=== PATIENT | female | born 1995 | race Caucasian/White ===

== ENCOUNTER 2017-01-13 22:46 | Emergency (ER) | payer OTHER, MEDICAID ==
[~2017-01-13] VITALS: Ht 167.6 cm; Wt 68.0 kg
[~2017-01-13 22:46] MED LIST: IBUP600 PO; OXYC1SOL5 PO; PERI8.6T PO; PRENCAP6 PO
[2017-01-13 22:48] VITALS: BP 185/87; PULSE 74; RESP 18; TEMP 97.8; O2SAT 100
[2017-01-13 23:35] VITALS: BP 144/97; PULSE 80; RESP 18; O2SAT 99
[2017-01-13] MEDS ORDERED: CALCTAB23 PO (23:41)
[2017-01-13] MEDS ORDERED: TUMS500C CHEW (23:41)
[2017-01-13] MEDS ORDERED: HYDR-3516 PO (23:41)
--- NOTE | 2017-01-14 00:18 | PD ---
HPI Chief Complaint: Chest Pain Time Seen by Provider: 23:56 Travel History International Travel<30 days: No Contact w/Intl Traveler<30days: No Traveled to known affect area: No History of Present Illness HPI Patient is a 21-year-old female who presents to emergency room with complaints of chest pain. Patient reports that she had a total thyroidectomy yesterday, as she had a thyroid nodule which was growing in size. Patient reports that she has not been started on any thyroid medications at this time. Patient reports that around 9 PM tonight, she began to have sharp stabbing chest pain to her epigastrium. Patient reports that chest pain is nonradiating in nature, denies shortness of breath, diaphoresis with symptoms. She with a history of chest pain in the past, no history of VT, coronary disease, hypertension or hyperlipidemia. Patient denies any drug abuse, no family history of early VT. PFSH Past Medical History Asthma: Yes Autoimmune Disease: No Blood Disorders: No Anxiety: No Depression: No Heart Rhythm Problems: No Cardiovascular Problems: No Chest Pain: No Cystic Fibrosis: No Diminished Hearing: No Gastrointestinal Disorders: No Genitourinary: No Headaches: No Hypertension: No Musculoskeletal: No Neurologic: No Psychiatric: No Reproductive: Yes (PCOS) Respiratory: Yes Immunizations Current: Yes Seizures: No Sickle Cell Disease: No Sleep Apnea: Yes Thyroid Disease: Yes (HYPER, THYROIDECTOMY 01/12/17) ?: Not LMP: "about two weeks ago" : 2 Para: 0 Miscarriage: 1 Past Surgical History Abdominal Surgery: No Cardiac Surgery: No Ear Surgery: No Endocrine Surgery: No Eye Surgery: No Genitourinary Surgery: No Gynecologic Surgery: No Neurologic Surgery: No Oral Surgery: Yes (T/A) Thoracic Surgery: No Tonsillectomy: Yes Other Surgery: Yes (thyroidectomy 01/12/17) Social History Alcohol Use: No Tobacco Use: No Substance Use: No Allergies-Medications (Allergen,Severity, Reaction): Uncoded Allergies: MASTISOL (Allergy, Severe, BLISTERS, 02/24/16) SEVERE Reported Meds & Prescriptions Reported Meds & Active Scripts Active Reported Calcium 500 + D (Calcium Carbonate-Vitamin D) 500-125 Mg-Unit Tab 1 Tab PO BID Tums (Calcium Carbonate (Antacid)) 500 Mg Chew 500 Mg CHEW PRN Hydrocodone-Acetaminophen 5-325 mg Tab 1 Tab PO Q4H PRN Review of Systems General / Constitutional: No: Fever Eyes: No: Visual changes HENT: No: Headaches Cardiovascular: Positive: Chest Pain or Discomfort, Palpitations Respiratory: No: Shortness of Breath Gastrointestinal: No: Abdominal Pain Genitourinary: No: Dysuria Musculoskeletal: No: Pain Skin: No Rash Neurologic: No: Weakness Psychiatric: No: Depression Endocrine: No: Polydipsia Hematologic/Lymphatic: No: Easy Bruising Physical Exam Narrative GENERAL: nad, nondistended SKIN: Focused skin assessment warm/dry. HEAD: Atraumatic. Normocephalic. EYES: Pupils equal and round. No scleral icterus. No injection or drainage. ENT: No nasal bleeding or discharge. Mucous membranes pink and moist. NECK: Trachea midline. No JVD. CARDIOVASCULAR: Regular rate and rhythm. No murmur appreciated. RESPIRATORY: No accessory muscle use. Clear to auscultation. Breath sounds equal bilaterally. GASTROINTESTINAL: Abdomen soft, non-tender, nondistended. Hepatic and splenic margins not palpable. MUSCULOSKELETAL: No obvious deformities. No clubbing. No cyanosis. No edema. NEUROLOGICAL: Awake and alert. No obvious cranial nerve deficits. Motor grossly within normal limits. Normal speech. PSYCHIATRIC: Appropriate mood and affect; insight and judgment normal. Data Data Last Documented VS Vital Signs Date Time Temp Pulse Resp B/P Pulse Ox O2 Delivery O2 Flow Rate FiO2 01/13/17 23:41 86 01/13/17 23:35 18 144/97 99 Room Air 01/13/17 22:48 97.8 Orders Ckmb (Isoenzyme) Profile (01/14/17 01:59) Complete Blood Count With Diff (01/14/17 01:59) Comprehensive Metabolic Panel (01/14/17 01:59) Magnesium (Mg) (01/14/17 01:59) Prothrombin Time / Inr (Pt) (01/14/17 01:59) Act Partial Throm Time (Ptt) (01/14/17 01:59) Troponin I (01/14/17 01:59) Chest, Single Ap (01/14/17 01:59) Iv Access Insert/Monitor (01/14/17 01:59) Sodium Chloride 0.9% Flush (Ns Flush) (01/14/17 02:00) Sodium Chlorid 0.9% 500 Ml Inj (Ns 500 M (01/14/17 02:00) Ketorolac Inj (Toradol Inj) (01/14/17 02:00) Sodium Chlor 0.9% 1000 Ml Inj (Ns 1000 M (01/14/17 02:00) Thyroid Stimulating Hormone (01/14/17 01:59) CKMB (01/13/17 23:44) CKMB% (01/13/17 23:44) Labs Laboratory Tests Test 01/13/17 23:44 White Blood Count 8.7 TH/MM3 Red Blood Count 4.16 MIL/MM3 Hemoglobin 11.5 GM/DL Hematocrit 34.8 % Mean Corpuscular Volume 83.5 FL Mean Corpuscular Hemoglobin 27.6 PG Mean Corpuscular Hemoglobin 33.1 % Concent Red Cell Distribution Width 14.6 % Platelet Count 260 TH/MM3 Mean Platelet Volume 7.3 FL Neutrophils (%) (Auto) 58.8 % Lymphocytes (%) (Auto) 30.9 % Monocytes (%) (Auto) 7.9 % Eosinophils (%) (Auto) 1.0 % Basophils (%) (Auto) 1.4 % Neutrophils # (Auto) 5.1 TH/MM3 Lymphocytes # (Auto) 2.7 TH/MM3 Monocytes # (Auto) 0.7 TH/MM3 Eosinophils # (Auto) 0.1 TH/MM3 Basophils # (Auto) 0.1 TH/MM3 CBC Comment DIFF FINAL Differential Comment Prothrombin Time 10.0 SEC Prothromb Time International 0.9 RATIO Ratio Activated Partial 26.7 SEC Thromboplast Time Sodium Level 141 MEQ/L Potassium Level 3.7 MEQ/L Chloride Level 106 MEQ/L Carbon Dioxide Level 26.4 MEQ/L Anion Gap 9 MEQ/L Blood Urea Nitrogen 11 MG/DL Creatinine 0.77 MG/DL Estimat Glomerular Filtration 96 ML/MIN Rate Random Glucose 66 MG/DL Calcium Level 8.1 MG/DL Magnesium Level 1.9 MG/DL Total Bilirubin 0.3 MG/DL Aspartate Amino Transf 19 U/L (AST/SGOT) Alanine Aminotransferase 14 U/L (ALT/SGPT) Alkaline Phosphatase 45 U/L Total Creatine Kinase 502 U/L Creatine Kinase MB 1.3 NG/ML Creatine Kinase MB % 0.3 % Troponin I LESS THAN 0.02 NG/ML Total Protein 6.6 GM/DL Albumin 3.1 GM/DL Thyroid Stimulating Hormone 0.032 uIU/ML 3rd Gen [facility] Medical Decision Making Medical Screen Exam Complete: Yes Emergency Medical Condition: Yes Interpretation(s) Vital Signs Date Time Temp Pulse Resp B/P Pulse Ox O2 Delivery O2 Flow Rate FiO2 01/13/17 23:41 86 01/13/17 23:35 80 18 144/97 99 Room Air 01/13/17 22:48 97.8 74 18 185/87 100 Room Air Differential Diagnosis acs, arrythmia, hyperthyroid, pe, pneumothorax Narrative Course Patient is a 21-year-old female with complaints of chest pain. Patient reports that she had a total thyroidectomy yesterday, worse that tonight she has been having sharp stabbing pain to her chest. Patient was placed on a manager cardiac cath upon arrival to emergency room. EKG at 2338 shows normal sinus rhythm at 87 bpm, QT/QTC 363/407, no acute ST-T wave changes Labs as well as x-ray chest ordered. patient was given toradol for pain repeat EKG at 0203: NSR at 68bpm, qt/qtc: 392/408, no st or t wave changes I reviewed all labs and all studies with patient in detail. Patient feeling much better at this time. Signs and symptoms of when to return to emergency room was reviewed with patient. 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 Patient will return to emergency room as needed. Diagnosis Primary Impression: Chest pain Qualified Code: R07.9 - Chest pain, unspecified type Additional Impression: Abnormal TSH Patient Instructions: General Instructions Additional Instructions: Please provide patient with a copy of his lab work at discharge Please call your surgeon Please call your primary care doctor Return to ER as needed Disposition: 01 DISCHARGE HOME Condition: Stable Enid Cm DO Jan 14, 2017 00:18
[2017-01-14] MEDS ORDERED: SODIUM CHLORID 0.9% 500 ML INJ 500 ML IV ONE (02:00)
[2017-01-14] MEDS ORDERED: KETOROLAC TROMETHAMINE 30 MG/ML (IVP) VIAL IV PUSH ONE (02:00)
[2017-01-14] MEDS ORDERED: SODIUM CHLOR 0.9% 1000 ML INJ 1,000 ML IV ONE (02:00)
[2017-01-14] MEDS ORDERED: SODIUM CHLORIDE 0.9% FLUSH 10 ML FLUSH IVF PRN (02:00)
[2017-01-14 02:19] LABS: AUTOMATED NEUTROPHIL # 5.1 TH/MM3 (1.8-7.7); BASOPHIL # 0.1 TH/MM3 (0-0.2); BASOPHIL % 1.4 % (0.0-2.0); EOSINOPHIL # 0.1 TH/MM3 (0-0.4); HEMATOCRIT 34.8 % (35.0-46.0); HEMO FLAGS DIFF FINAL; LYMPH % 30.9 % (9.0-44.0); LYMPHOCYTE # 2.7 TH/MM3 (1.0-4.8); MEAN CELL VOLUME 83.5 FL (80.0-100.0); MEAN CORPUSCULAR HEMOGLOBIN 27.6 PG (27.0-34.0); MEAN CORPUSCULAR HGB CONC 33.1 % (32.0-36.0); MONO % 7.9 % (0.0-8.0); NEUT % 58.8 % (16.0-70.0); PLATELET COUNT 260 TH/MM3 (150-450); RED BLOOD COUNT 4.16 MIL/MM3 (4.00-5.30); RED CELL DISTRIBUTION WIDTH 14.6 % (11.6-17.2); WHITE BLOOD COUNT 8.7 TH/MM3 (4.0-11.0)
[2017-01-14 02:31] LABS: APTT (PATIENT) 26.7 SEC (24.3-30.1); INTERNATIONAL NORMALIZED RATIO 0.9 RATIO
[2017-01-14 02:52] LABS: ALT (GPT) 14 U/L (9-42); ANION GAP 9 MEQ/L (5-15); AST (GOT) 19 U/L (16-38); BICARBONATE 26.4 MEQ/L (21.0-32.0); BLOOD UREA NITROGEN 11 MG/DL (7-18); CHLORIDE 106 MEQ/L (98-107); GLOMERULAR FILTRATION RATE 96 ML/MIN (>89); MAGNESIUM 1.9 MG/DL (1.5-2.5); POTASSIUM 3.7 MEQ/L (3.5-5.1); SODIUM (NA) 141 MEQ/L (136-145)
[2017-01-14 03:02] LABS: ALKALINE PHOSPHATASE 45 U/L (45-117); CREATINE KINASE 502 U/L (26-192); TOTAL BILIRUBIN ADULT 0.3 MG/DL (0.2-1.0)
--- NOTE | 2017-01-14 03:02 | RADRPT ---
EXAM DATE/TIME: 01/14/2017 01:58 [facility] COMPARISON: No previous studies available for comparison. INDICATIONS : Chest pain. MEDICAL HISTORY : None. SURGICAL HISTORY : None. ENCOUNTER: Initial ACUITY: 1 day PAIN SCORE: 6/10 LOCATION: Bilateral chest FINDINGS: A single view of the chest demonstrates the lungs to be symmetrically aerated without evidence of mas s, infiltrate or effusion. The cardiomediastinal contours are unremarkable. Osseous structures are intact. CONCLUSION: No acute disease. Nasir Fuentes MD on January 14, 2017 at 3:00 Board Certified Radiologist. This report was verified electronically.
[2017-01-14 03:14] LABS: CKMB 1.3 NG/ML (0.5-3.6)
--- NOTE | 2017-01-17 14:06 | EKG ---
Date Performed: 01/13/2017 Time Performed: 23:38:24 PTAGE: 21 years EKG: WITHIN NORMAL LIMITS NORMAL ECG NO PREVIOUS TRACING DOCTOR: Romero Morrissey Interpretating Date/Time 01/17/2017 14:05:33
--- NOTE | 2017-01-17 14:07 | EKG ---
Date Performed: 01/14/2017 Time Performed: 02:03:03 PTAGE: 21 years EKG: SINUS ARRHYTHMIA OTHERWISE, WITHIN NORMAL LIMITS Compared to previous tracing, sinus arrhyt hmia is new. NORMAL ECG PREVIOUS TRACING : 01/13/2017 23.38 DOCTOR: Romero Morrissey Interpretating Date/Time 01/17/2017 14:06:14
== END 2017-01-14 03:47 | disposition home or self-care (01) ==
LOC: NEPE 22:46
DX: R07.9 Chest pain, unspecified (principal); R94.6 Abnormal results of thyroid function studies; Z79.899 Other long term (current) drug therapy
CPT/HCPCS: 71010; 80053; 82550; 82552; 83735; 84443; 84484; 85025; 85610; 85730; 93005; 96374; 99285; J1885; J7030; J7040

== ENCOUNTER 2017-11-20 19:47 | Emergency (ER) | payer OTHER, MEDICAID ==
[~2017-11-20] VITALS: Ht 167.6 cm; Wt 68.0 kg
[~2017-11-20 19:47] MED LIST changes: +CALCTAB23 PO; +HYDR-3516 PO; -IBUP600 PO; -OXYC1SOL5 PO; -PERI8.6T PO; -PRENCAP6 PO; +TUMS500C CHEW
[2017-11-20 19:50] VITALS: BP 138/77; PULSE 95; RESP 16; TEMP 99.4; O2SAT 99
[2017-11-20] MEDS ORDERED: BIRTH CONTROL PO (20:24)
[2017-11-20] MEDS ORDERED: LEVO137T2 PO (20:24)
[2017-11-20] MEDS ORDERED: DOXY100C PO (20:37)
[2017-11-20] MEDS ORDERED: ALLE12TA2 PO (20:37)
--- NOTE | 2017-11-20 20:42 | PD ---
HPI Chief Complaint: Cold / Flu Symptoms Time Seen by Provider: 20:28 Travel History International Travel<30 days: No Contact w/Intl Traveler<30days: No Traveled to known affect area: No History of Present Illness HPI 22-year-old white female presents emergency department with a four-day history o cough, congestion, runny nose, sinus pressure and pain. She has had some mild pain in the lower legs but no significant myalgias or arthralgias. She denies any nausea or vomiting. No abdominal pain or diarrhea. No dysuria or frequency. PFSH Past Medical History Asthma: Yes Autoimmune Disease: No Blood Disorders: No Anxiety: No Depression: No Heart Rhythm Problems: No Cardiovascular Problems: No Chest Pain: No Cystic Fibrosis: No Diminished Hearing: No Gastrointestinal Disorders: No Genitourinary: No Headaches: No Hypertension: No Musculoskeletal: No Neurologic: No Psychiatric: No Reproductive: Yes (PCOS) Respiratory: Yes Immunizations Current: Yes Seizures: No Sickle Cell Disease: No Sleep Apnea: Yes Thyroid Disease: Yes (HYPER, THYROIDECTOMY 01/12/17) ?: Not LMP: 11/15/17 : 2 Para: 0 Miscarriage: 1 Past Surgical History Abdominal Surgery: No Cardiac Surgery: No Ear Surgery: No Endocrine Surgery: No Eye Surgery: No Genitourinary Surgery: No Gynecologic Surgery: No Neurologic Surgery: No Oral Surgery: Yes (T/A) Thoracic Surgery: No Tonsillectomy: Yes Other Surgery: Yes (thyroidectomy 01/12/17) Social History Alcohol Use: Yes Tobacco Use: No Substance Use: No Allergies-Medications (Allergen,Severity, Reaction): Uncoded Allergies: MASTISOL (Allergy, Severe, BLISTERS, 02/24/16) SEVERE Reported Meds & Prescriptions Reported Meds & Active Scripts Active Isabel-D 12 Hour Allergy (Fexofenadine-Pseudoephedrine ER 12 HR) 60-120 Mg Scotty 1 Tab PO BID Doxycycline Hyclate 100 Mg Cap 100 Mg PO BID Reported [ Control] 1 Tab PO DAILY Levothyroxine (Levothyroxine Sodium) 137 Mcg Tab 137 Mcg PO DAILY Review of Systems Except as stated in HPI: all other systems reviewed are Neg Physical Exam Narrative GENERAL: Well-developed, well-nourished in no acute distress. Nontoxic appearing. HEAD: Normocephalic, atraumatic. EYES: Pupils equal round and reactive. Extraocular motions intact. No scleral icterus. No injection or drainage. ENT: TMs clear without erythema. The external auditory canals clear. Nose: clear . Posterior pharynx is pink and moist. No tonsillar edema or exudate. Uvula midline. Airway patent. NECK: Trachea midline.Supple, nontender, moves head freely. No central bony tenderness or spasm. CARDIOVASCULAR: Regular rate and rhythm without murmurs, gallops, or rubs. RESPIRATORY: Clear to auscultation. Breath sounds equal bilaterally. No wheezes , rales, or rhonchi. GASTROINTESTINAL: Abdomen soft, non-tender, nondistended. No hepato-splenomegaly , or palpable masses. No guarding. EXTREMITIES: No clubbing, cyanosis, or edema. No joint tenderness, effusion, or edema noted. BACK: Nontender without deformity or crepitance. No flank tenderness. Data Data Last Documented VS Vital Signs Date Time Temp Pulse Resp B/P (MAP) Pulse Ox O2 Delivery O2 Flow Rate FiO2 11/20/17 20:37 11/20/17 19:50 99.4 95 16 99 Room Air Orders Orders Influenzae A/B Antigen (11/20/17 20:15) Ed Discharge Order (11/20/17 20:34) MDM Medical Decision Making Medical Screen Exam Complete: Yes Emergency Medical Condition: Yes Medical Record Reviewed: Yes Interpretation(s) Influenza: Positive Differential Diagnosis MDM: High Differential diagnoses: Pneumonia, bronchitis, URI, asthma, RAD, legionnaire's disease, SARS, ARDS, influenza, bronchiolitis, RSV,PE,CHF Narrative Course This is upper respiratory tract infection. Diagnosis Primary Impression: Upper respiratory tract infection Additional Impression: Influenza Patient Instructions: General Instructions Additional Instructions: Rest. Increase fluids. Tylenol and Advil. Doxycycline, Isabel-D. Followup with your DrRajiv in one week. Return to the ER for any problems. Med/Other Pt SpecificInfo: Prescription(s) given Scripts Fexofenadine-Pseudoephedrine ER 12 HR (Isabel-D 12 Hour Allergy) 60-120 Mg Scotty 1 TAB PO BID for Allergy Management, #14 TAB 0 Refills Prov: Armand Morales MD 11/20/17 Doxycycline Hyclate (Doxycycline Hyclate) 100 Mg Cap 100 MG PO BID for Infection, #20 CAP 0 Refills Prov: Andrew,Hung MD 11/20/17 Disposition: 01 DISCHARGE HOME Condition: Stable Arsenio Roberts Nov 20, 2017 20:42
== END 2017-11-20 21:19 | disposition home or self-care (01) ==
LOC: NEPD 19:47
DX: J06.9 Acute upper respiratory infection, unspecified (principal); J10.1 Influenza due to other identified influenza virus with other respiratory manifestations; J45.909 Unspecified asthma, uncomplicated; E05.90 Thyrotoxicosis, unspecified without thyrotoxic crisis or storm; Z79.899 Other long term (current) drug therapy; Z88.8 Allergy status to other drugs, medicaments and biological substances; Z79.3 Long term (current) use of hormonal contraceptives
CPT/HCPCS: 87804; 99283